=== PATIENT | male | born 1935 | race Caucasian/White ===

== ENCOUNTER 2019-03-12 00:19 | Emergency (ER) | payer MEDICARE ==
[~2019-03-12] VITALS: Ht 175.3 cm; Wt 92.2 kg
[~2019-03-12 00:19] MED LIST: AMLO2.5T5; ASA; LOVA10TA; [UNRECOGNIZED DRUG - OTHER]
--- NOTE | 2019-03-12 00:25 | NUR ---
TASK RN: PT TO ROOM FROM TRIAGE BY WHEELCHAIR. PT TRANSFERED SELF FROM WHEELCHAIR TO [facility] WO ASSISTANCE. NAD NOTED. PT REPORTS 'FLUTTERING SENSATION' OVER L CHEST X 1800 THIS EVENING. DENIES SOB/CP/DIZZINESS/WEAKNESS/NAUSEA. HX OF AFIB; REPORTS COMPLIANCE WITH BLOOD THINNER. BP/SPO2/ECG MONITORING IN PLACE. NSR ON MONITOR, HR 60'S. SO AT BEDSIDE. ERP IN FOR INITIAL ASSESSMENT.
[2019-03-12 00:54] LABS: BASOPHILS # (AUTO) 0.04 x10^3/uL (0-0.1); BASOPHILS % (AUTO) 1 % (0-1); EOSINOPHILS # (AUTO) 0.23 x10^3/uL (0-0.4); EOSINOPHILS % (AUTO) 4 % (1-7); LYMPHOCYTES # (AUTO) 1.88 x10^3/uL (1-3.4); LYMPHOCYTES % (AUTO) 29 % (22-44); MD NO; MEAN CORPUSCULAR HEMOGLOBIN 31.8 pg (27.5-34.5); MEAN CORPUSCULAR HGB CONC 33.3 g/dL (33.2-36.2); MEAN CORPUSCULAR VOLUME 95.4 fL (81-97); MEAN PLATELET VOLUME 9.7 fL (7.4-10.4); MONOCYTES # (AUTO) 0.56 x10^3/uL (0.2-0.8); MONOCYTES % (AUTO) 9 % (2-9); NEUTROPHILS # (AUTO) 3.77 x10^3/uL (1.8-6.8); NEUTROPHILS % (AUTO) 58 % (42-75); PLATELET COUNT 226 x10^3/uL (130-400); RED BLOOD COUNT 4.79 x10^6/uL (4.38-5.82); RED CELL DISTRIBUTION WIDTH 13.4 % (9.4-14.8)
[2019-03-12 01:04] LABS: ALBUMIN 3.5 g/dL (3.4-5.0); ANION GAP 6 mmol/L (5-15); CALCIUM 8.6 mg/dL (8.5-10.1); CHLORIDE 101 mmol/L (98-107); CREATININE 1.58 mg/dL (0.7-1.3)
[2019-03-12 01:08] LABS: TROPONIN I < 0.015 ng/mL (0.000-0.045)
--- NOTE | 2019-03-12 02:27 | NUR ---
D/C INST REVIEWED W/ THE PT TO INCLUDE F/U OP W/ PCP AND [employer]PER[employer]. THE PT VERB UNDERSTANDING AND DENIES QUESTIONS. Addendum: 03/12/19 at 0227 by JACKSON THE PT AMB OUT OF THE ED W/O DIFF W/ S.O.
[2019-03-12 02:28] VITALS: BP 131/84
== END 2019-03-12 02:30 | disposition home or self-care (01) ==
LOC: ED 00:44
DX: R00.2 Palpitations (principal); I48.91 Unspecified atrial fibrillation
CPT/HCPCS: 36415; 71045; 80048; 82040; 84484; 85025; 93005; 99284